=== PATIENT | female | born 1935 | race Asian ===

== ENCOUNTER 2017-12-21 12:34 | Inpatient (IN) | payer MEDICARE, MEDICAID ==
[~2017-12-21] VITALS: Ht 149.9 cm; Wt 54.4 kg
[2017-12-21] MEDS ORDERED: Sodium Chloride 500ML 500 ML IV ONE (12:43)
[2017-12-21 12:44] VITALS: BP 175/68
[2017-12-21] MEDS ORDERED: METFORMIN HCL500 M1 ORAL (12:44)
[2017-12-21] MEDS ORDERED: ATORVASTATIN CA40 MG ORAL (12:44)
[2017-12-21] MEDS ORDERED: ASPIR 8181 MG ORAL (12:44)
[2017-12-21] MEDS ORDERED: TRADJENTA5 MG PO (12:44)
[2017-12-21] MEDS ORDERED: METOCLOPRAMIDE H5 M1 ORAL (12:44)
[2017-12-21] MEDS ORDERED: MELOXICAM15 MG PO (12:44)
[2017-12-21] MEDS ORDERED: GLIMEPIRIDE4 MG ORAL ×2 (12:44)
[2017-12-21] MEDS ORDERED: VITAMIN D400 INTLU ORAL (12:44)
[2017-12-21] MEDS ORDERED: GABAPENTIN100 MG ORAL (12:44)
[2017-12-21] MEDS ORDERED: LEVOCETIRIZINE D5 MG ORAL (12:44)
--- NOTE | 2017-12-21 12:57 | Emergency Room Report ---
History of Present Illness General Chief Complaint: Dizziness Source: Medical Record, EMS Present Illness HPI Patient presents from a elderly daycare facility Patient has had multiple episodes of vomiting She still has increased nausea had several episodes of dry heaving in the emergency room denies any chest pain Denies any fevers denies any dysuria Denies any rash Patient denies any associated pain And with using the manager user interface system reports that her dizziness started just at the moment Patient contributes her nausea to significant dizziness Allergies: Coded Allergies: No Known Allergies (Unverified , 12/21/17) Patient History Past Medical History: see triage record Pertinent Family History: none Reviewed Nursing Documentation: PMH: Agreed; PSxH: Agreed Nursing Documentation-PMH Past Medical History: No History, Except For Hx Hypertension: Yes - Vitamin D deficiency Hx Diabetes: Yes Hx Gastrointestinal Problems: Yes - peptic ulcer, GERD, gastritis History Of Psychiatric Problem: Yes - Major depression Review of Systems All Other Systems: negative except mentioned in HPI Physical Exam Vital Signs Date Time Temp Pulse Resp B/P (MAP) Pulse Ox O2 Delivery O2 Flow Rate FiO2 12/21/17 12:35 96.7 74 20 179/63 99 Room Air 96.6 Sp02 EP Interpretation: reviewed, normal General Appearance: mild distress - Appears uncomfortable Head: normocephalic, atraumatic Eyes: bilateral eye PERRL, bilateral eye EOMI ENT: hearing grossly normal, normal pharynx, TMs + canals normal, uvula midline Neck: full range of motion, supple, no meningismus, no bony tend Respiratory: lungs clear, normal breath sounds, no rhonchi, no respiratory distress, no retraction, no accessory muscle use Cardiovascular #1: normal peripheral pulses, regular rate, rhythm, no edema, no gallop, no JVD, no murmur Gastrointestinal: normal bowel sounds, non tender, soft, no mass, no organomegaly, non-distended, no guarding, no hernia, no pulsatile mass, no rebound Genitourinary: no CVA tenderness Musculoskeletal: normal inspection Neurologic: oriented x3, responsive, reception specialist III-XII nml as tested, motor strength/ tone normal, sensory intact Psychiatric: mood/affect normal Skin: warm/dry, palpation normal, jaundice - Appearance Lymphatic: normal inspection, no adenopathy Medical Decision Making Diagnostic Impression: Primary Impression: Dizziness Additional Impression: Pancreatitis ER Course With the history exam and presentation, multiple differentials considered, including but not limited to appendicitis, gastritis, cholecystitis, diverticulitis Patient has several abnormalities including abnormal CT evidence of stone near the gallbladder Patient did somewhat better with discomfort however given the consideration for cholecystitis Provided antibiotics requiring further inpatient care Labs Test 12/21/17 12:08 12/21/17 12:25 12/22/17 05:45 12/23/17 06:30 Urine Color Pale yellow Urine Appearance Clear Urine pH 7 (4.5-8.0) Urine Specific [place] 1.010 (1.005-1.035) Urine Protein 2+ (NEGATIVE) Urine Glucose (UA) 3+ (NEGATIVE) Urine Ketones 1+ (NEGATIVE) Urine Blood Negative (NEGATIVE) Urine Nitrite Negative (NEGATIVE) Urine Bilirubin Negative (NEGATIVE) Urine Urobilinogen Normal MG/DL (0.0-1.0) Urine Leukocyte Esterase Negative (NEGATIVE) Urine RBC 0 /HPF (0 - 2) Urine WBC 0 /HPF (0 - 2) Urine Squamous Epithelial Cells Occasional /LPF Urine Bacteria None /HPF (NONE) White Blood Count 11.4 K/UL (4.8-10.8) Red Blood Count 4.09 M/UL (4.20-5.40) Hemoglobin 12.5 G/DL (12.0-16.0) Hematocrit 36.6 % (37.0-47.0) Mean Corpuscular Volume 89 FL (80-99) Mean Corpuscular Hemoglobin 30.6 PG (27.0-31.0) Mean Corpuscular Hemoglobin Concent 34.2 G/DL (32.0-36.0) Red Cell Distribution Width 11.8 % (11.6-14.8) Platelet Count 186 K/UL (150-450) Mean Platelet Volume 6.7 FL (6.5-10.1) Neutrophils (%) (Auto) 70.2 % (45.0-75.0) Lymphocytes (%) (Auto) 23.0 % (20.0-45.0) Monocytes (%) (Auto) 5.3 % (1.0-10.0) Eosinophils (%) (Auto) 0.9 % (0.0-3.0) Basophils (%) (Auto) 0.6 % (0.0-2.0) Sodium Level 138 MMOL/L (136-145) 144 MMOL/L (136-145) 146 MMOL/L (136-145) Potassium Level 3.6 MMOL/L (3.5-5.1) 4.8 MMOL/L (3.5-5.1) 4.3 MMOL/L (3.5-5.1) Chloride Level 102 MMOL/L (98-107) 108 MMOL/L (98-107) 108 MMOL/L (98-107) Carbon Dioxide Level 20 MMOL/L (21-32) 27 MMOL/L (21-32) 27 MMOL/L (21-32) Anion Gap 17 mmol/L (5-15) 10 mmol/L (5-15) 11 mmol/L (5-15) Blood Urea Nitrogen 14 mg/dL (7-18) 13 mg/dL (7-18) 10 mg/dL (7-18) Creatinine 0.8 MG/DL (0.55-1.30) 0.8 MG/DL (0.55-1.30) 0.9 MG/DL (0.55-1.30) Estimat Glomerular Filtration Rate mL/min (>60) mL/min (>60) mL/min (>60) Glucose Level 191 MG/DL (74-106) 149 MG/DL (74-106) 153 MG/DL (74-106) Calcium Level 9.6 MG/DL (8.5-10.1) 8.7 MG/DL (8.5-10.1) 8.5 MG/DL (8.5-10.1) Total Bilirubin 0.7 MG/DL (0.2-1.0) Aspartate Amino Transf (AST/SGOT) 22 U/L (15-37) Alanine Aminotransferase (ALT/SGPT) 32 U/L (12-78) Alkaline Phosphatase 119 U/L (46-116) Total Creatine Kinase 102 U/L (26-308) Creatine Kinase MB 0.9 NG/ML (0.0-3.6) Creatine Kinase MB Relative Index 0.8 Troponin I 0.000 ng/mL (0.000-0.056) Total Protein 8.3 G/DL (6.4-8.2) Albumin 4.1 G/DL (3.4-5.0) Globulin 4.2 g/dL Albumin/Globulin Ratio 1.0 (1.0-2.7) Lipase 1334 U/L (73-393) 161 U/L (73-393) Magnesium Level 1.7 MG/DL (1.8-2.4) Triglycerides Level 164 MG/DL (30-150) Cholesterol Level 91 MG/DL (< 200) LDL Cholesterol 32 mg/dL (<100) HDL Cholesterol 36 MG/DL (40-60) Cholesterol/HDL Ratio 2.5 (3.3-4.4) Thyroid Stimulating Hormone (TSH) 0.320 uiU/mL (0.358-3.740) Rhythm Strip Diag. Results EP Interpretation: yes Rate: 66 Rhythm: NSR, no PVC's, no ectopy Chest X-Ray Diagnostic Results Chest X-Ray Diagnostic Results : Chest X-Ray Ordered: Yes # of Views/Limited/Complete: 1 View Indication: Chest Pain EP Interpretation: Yes Interpretation: no consolidation, no effusion, no pneumothorax Impression: No acute disease Electronically Signed by: Michelle Berry DO CT/MRI/US Diagnostic Results CT/MRI/US Diagnostic Results : Impression CT abdomen pelvisIMPRESSION: 1. Distended gallbladder. Slightlythickened gallbladder wall. 2. Large duodenal diverticula. Colonic diverticulosis. No acute diverticulitis. 3. Moderate stool in the colon, maybe constipation. No bowel obstruction. 4. Mild bilateral perinephric stranding maybe senescent, correlate for infection. No obstructive uropathy. CT head no acute disease Last Vital Signs Date Time Temp Pulse Resp B/P (MAP) Pulse Ox O2 Delivery O2 Flow Rate FiO2 12/21/17 12:44 97.5 69 13 175/68 97 Room Air 97.5 Status: improved Disposition: ADMITTED INPATIENT Condition: Serious Michelle Berry DO Dec 21, 2017 12:57
[2017-12-21 13:00] VITALS: BP 150/54
[2017-12-21] MEDS ORDERED: Meclizine 25mg tab ORAL ONE (13:15)
[2017-12-21 13:20] LABS: BASOPHILS % (AUTO) 0.6 % (0.0-2.0); EOSINOPHILS % (AUTO) 0.9 % (0.0-3.0); HEMATOCRIT 36.6 % (37.0-47.0); HEMOGLOBIN 12.5 G/DL (12.0-16.0); MEAN CORPUSCULAR VOLUME 89 FL (80-99); MONOCYTES % (AUTO) 5.3 % (1.0-10.0); NEUTROPHILS % (AUTO) 70.2 % (45.0-75.0); PLATELET COUNT 186 K/UL (150-450); RED BLOOD COUNT 4.09 M/UL (4.20-5.40); RED CELL DISTRIBUTION WIDTH 11.8 % (11.6-14.8); WHITE BLOOD COUNT 11.4 K/UL (4.8-10.8)
[2017-12-21 13:30] LABS: ANION GAP 17 mmol/L (5-15); BLOOD UREA NITROGEN 14 mg/dL (7-18); CALCIUM 9.6 MG/DL (8.5-10.1); CARBON DIOXIDE 20 MMOL/L (21-32); CHLORIDE 102 MMOL/L (98-107); CREATININE 0.8 MG/DL (0.55-1.30); POTASSIUM 3.6 MMOL/L (3.5-5.1); SODIUM 138 MMOL/L (136-145)
--- NOTE | 2017-12-21 13:40 | Diagnostic Imaging Report ---
EXAM: CT Head Without Intravenous Contrast CLINICAL HISTORY: DIZZY TECHNIQUE: Axial computed tomography images of the head/brain without intravenous contrast. CTDI is 70.38 mGy and DLP is 1333 mGy-cm. One or more of the following dose reduction techniques were used: automated exposure control, adjustment of the mA and/or kV according to patient size, use of iterative reconstruction technique. COMPARISON: No relevant prior studies available. FINDINGS: No intracranial hemorrhage, abnormal intra- or extra-axial collections or parenchymal lesions are seen. There are involutional changes with prominence of the sulci, basal cisterns and ventricles. Scattered white matter hypoattenuations are present, likely from small vessel disease. The soliz-white differentiation is preserved. No evidence of mass effect, midline shift, or edema. The osseous structures are unremarkable. The visualized portions of the paranasal sinuses are clear. IMPRESSION: 1. No acute intracranial process. 2. Involutional changes with small vessel disease.
[2017-12-21 13:45] LABS: ALANINE AMINOTRANSFERASE 32 U/L (12-78); ALBUMIN 4.1 G/DL (3.4-5.0); ALKALINE PHOSPHATASE 119 U/L (46-116); ASPARTATE AMINO TRANSFERASE 22 U/L (15-37); BILIRUBIN,TOTAL 0.7 MG/DL (0.2-1.0); CKMB 0.9 NG/ML (0.0-3.6); CREATINE KINASE 102 U/L (26-308)
--- NOTE | 2017-12-21 13:50 | Diagnostic Imaging Report ---
EXAM: CT Abdomen and Pelvis Without Intravenous Contrast CLINICAL HISTORY: PAIN TECHNIQUE: Axial computed tomography images of the abdomen and pelvis without intravenous contrast. CTDI is 9.47 mGy and DLP is 488 mGy-cm. One or more of the following dose reduction techniques were used: automated exposure control, adjustment of the mA and/or kV according to patient size, use of iterative reconstruction technique. COMPARISON: No relevant prior studies available. FINDINGS: Lung bases: Mild bibasilar lung atelectasis. Heart: Cardiomegaly. Coronary artery disease. Mediastinum: Small hiatal hernia. ABDOMEN: Liver: Unremarkable. Gallbladder and bile ducts: Distended gallbladder. Slightly thickened gallbladder wall. No calcified stones. No ductal dilation. Pancreas: Unremarkable. No ductal dilation. Spleen: Unremarkable. No splenomegaly. Adrenals: Unremarkable. No mass. Kidneys and ureters: Mild bilateral perinephric stranding may be senescent, correlate for infection. No obstructive uropathy. Stomach and bowel: Large duodenal diverticula. Colonic diverticulosis. No acute diverticulitis. Moderate stool in the colon, may be constipation. No bowel obstruction. PELVIS: Appendix: Normal appendix. Bladder: Unremarkable. No stones. Reproductive: Uterus and adnexa unremarkable. ABDOMEN and PELVIS: Intraperitoneal space: Unremarkable. No free air. No significant fluid collection. Bones/joints: Degenerative changes of the lumbar spine. No acute fracture. No dislocation. Soft tissues: Unremarkable. Vasculature: Atherosclerotic vascular disease. Nodularities paraesophageal region, query varices. No abdominal aortic aneurysm. Lymph nodes: Small borderline mesenteric lymph nodes. IMPRESSION: 1. Distended gallbladder. Slightly thickened gallbladder wall. 2. Large duodenal diverticula. Colonic diverticulosis. No acute diverticulitis. 3. Moderate stool in the colon, may be constipation. No bowel obstruction. 4. Mild bilateral perinephric stranding may be senescent, correlate for infection. No obstructive uropathy.
--- NOTE | 2017-12-21 13:52 | Diagnostic Imaging Report ---
EXAM: XR Chest, 1 View CLINICAL HISTORY: CP TECHNIQUE: Frontal view of the chest. COMPARISON: No relevant prior studies available. FINDINGS: Lungs: Slightly elevated right hemidiaphragm. Mild bibasilar lung atelectasis. Pleural space: Unremarkable. No pneumothorax. Heart: Unremarkable. No cardiomegaly. Mediastinum: Unremarkable. Bones/joints: Unremarkable. IMPRESSION: Slightly elevated right hemidiaphragm. Mild bibasilar lung atelectasis.
[2017-12-21 14:00] VITALS: BP 137/55
[2017-12-21] MEDS ORDERED: cefTRIAXone 1 GM in NS 55 ML IVPB ONE (14:00)
[2017-12-21 14:09] LABS: APPEARANCE,URINE CLEAR; BILIRUBIN, URINE NEGATIVE (NEGATIVE); COLOR,URINE PALE YELLOW; GLUCOSE, URINE (UA) 3+ (NEGATIVE); KETONES,URINE 1+ (NEGATIVE); LEUKOCYTE ESTERASE ,URINE NEGATIVE (NEGATIVE); NITRITE,URINE NEGATIVE (NEGATIVE); PH,URINE 7 (4.5-8.0); PROTEIN,URINE 2+ (NEGATIVE); UROBILINOGEN,URINE NORMAL MG/DL (0.0-1.0)
[2017-12-21 16:20] VITALS: BP 135/67
[2017-12-21] MEDS ORDERED: Milk of Magnesia 30ml Ud ORAL PRN (16:45)
[2017-12-21] MEDS ORDERED: Zolpidem 5mg tab ORAL PRN (16:50)
--- NOTE | 2017-12-21 18:36 | History & Physical ---
History and Physical History & Physicial HP dictated # [id number] Milan Martins MD Dec 21, 2017 18:36
[2017-12-21 20:00] VITALS: BP 153/63
--- NOTE | 2017-12-21 20:30 | History and Physical Report ---
DATE OF ADMISSION: 12/21/2017 CHIEF COMPLAINT: Nausea, vomiting, and dizziness. HISTORY OF PRESENT ILLNESS: This is a [place] speaking female, who was in her usual state of health. She was at the daycare center today. She started having dizziness and vomiting. She was brought in by paramedics. She was found to have a lipase of 1334 and was admitted. She denies any previous history of gall stones. She denies history of previous problems with the GI tract. PAST MEDICAL HISTORY: Only positive for diabetes and vitamin D deficiency and the reported history of depression. Also, the ER notes that she has history of peptic ulcer disease, GERD, and gastritis. As mentioned, she denies. MEDICATIONS: Reviewed in the EMR. ALLERGIES: No known drug allergies. SOCIAL HISTORY: No history of smoking or alcohol abuse. The patient lives by herself, but she has a son, who lives close by. REVIEW OF SYSTEMS: As above. PHYSICAL EXAMINATION: GENERAL: The patient is an elderly female, in no acute distress. VITAL SIGNS: Blood pressure 179/63, pulse 74, temp 96.7, and respirations 20. HEENT: [place] conjunctivae. Anicteric sclerae. NECK: Supple. LUNGS: Clear to auscultation. HEART: S1, S2 without murmurs or rubs. ABDOMEN: Soft and nontender. EXTREMITIES: No cyanosis or edema. LABORATORY FINDINGS: The CBC shows a WBC of 11,400, hematocrit 36.6, hemoglobin 12.5, and platelets 186,000. The chemistry panel shows serum sodium of 138, potassium 3.6, chloride 102, CO2 20, BUN is 14, creatinine 0.8, and glucose is 191. Lipase is 1334. UA is unremarkable except 3+ protein. ASSESSMENT: This is an 81-year-old female, who is admitted with nausea and vomiting, which has improved. The patient had vomiting, but the problem is that she has significant elevated lipase, pancreatitis is in the differential diagnosis. Also, the patient reportedly has a history of gastroesophageal reflux and gastritis, which could also cause her symptoms. She is diabetic. PLAN: The patient will be on liquid diet, antiemetics, and intravenous fluids. GI consultation will be obtained and further plans will be made based on those results. Milan Martins M.D. DR: KASSY JOB#: [id number] CC: TIM
[2017-12-21] MEDS: Atorvastatin 20mg tab ORAL SCH (20:32)
[2017-12-21] MEDS: NovoLOG Insulin Flexpen SUBQ SCH (20:33)
[2017-12-22] VITALS: BP 114/52
[2017-12-22 04:00] VITALS: BP 131/69
[2017-12-22] MEDS: NovoLOG Insulin Flexpen SUBQ SCH ×4 (06:19→20:41)
[2017-12-22 08:00] VITALS: BP 114/60
[2017-12-22 08:04] LABS: ANION GAP 10 mmol/L (5-15); BLOOD UREA NITROGEN 13 mg/dL (7-18); CALCIUM 8.7 MG/DL (8.5-10.1); CARBON DIOXIDE 27 MMOL/L (21-32); CHLORIDE 108 MMOL/L (98-107); CHOLESTEROL 91 MG/DL (< 200); CREATININE 0.8 MG/DL (0.55-1.30); HDL CHOLESTEROL 36 MG/DL (40-60); POTASSIUM 4.8 MMOL/L (3.5-5.1); SODIUM 144 MMOL/L (136-145); TRIGLYCERIDES 164 MG/DL (30-150)
[2017-12-22] MEDS: Aspirin EC 81mg tab ORAL SCH (08:28)
[2017-12-22] MEDS: Pantoprazole Inj IV SCH (08:28)
[2017-12-22] MEDS ORDERED: 1/2 NS 1000ml IV ONE (08:35)
[2017-12-22 12:00] VITALS: BP 128/58
--- NOTE | 2017-12-22 12:12 | General Progress Note ---
Assessment/Plan Problem List: (1) Pancreatitis ICD Codes: K85.90 - Acute pancreatitis without necrosis or infection, unspecified SNOMED: 88591538, 492954671 (2) Dizziness ICD Codes: R42 - Dizziness and giddiness SNOMED: 865364620, 932576127 (3) Vomiting ICD Codes: R11.10 - Vomiting, unspecified SNOMED: 409290342 (4) DM (diabetes mellitus) ICD Codes: E11.9 - Type 2 diabetes mellitus without complications SNOMED: 88548080 Assessment/Plan GI consult follow lipase advance diet per GI Subjective Allergies: Coded Allergies: No Known Allergies (Unverified , 12/21/17) Subjective feels ok Objective Last 24 Hour Vital Signs Date Time Temp Pulse Resp B/P (MAP) Pulse Ox O2 Delivery O2 Flow Rate FiO2 12/22/17 09:00 Room Air 12/22/17 08:00 97.7 68 18 114/60 (78) 98 97.7 12/22/17 08:00 65 12/22/17 04:00 98.0 71 16 131/69 (89) 98 98.0 12/22/17 04:00 61 12/22/17 00:00 67 12/22/17 00:00 98.1 67 16 114/52 (72) 95 98.1 12/21/17 21:00 Room Air 12/21/17 20:00 98.3 70 18 153/63 (93) 96 98.3 12/21/17 20:00 67 12/21/17 16:26 70 12/21/17 16:20 97.5 71 16 135/67 (89) 97 97.5 12/21/17 15:53 Room Air 12/21/17 14:00 72 22 137/55 96 Room Air 12/21/17 13:00 66 22 150/54 98 Room Air 12/21/17 12:44 97.5 69 13 175/68 97 Room Air 97.5 12/21/17 12:35 96.7 74 20 179/63 99 Room Air 96.6 Intake and Output 12/21/17 12/22/17 19:00 07:00 Intake Total 1015 ml Output Total 240 ml Balance -240 ml 1015 ml Intake Oral 120 ml IV Total 895 ml Output Urine Total 240 ml # Voids 1 2 Laboratory Tests 12/21/17 12:08: Urine Color Pale yellow, Urine Appearance Clear, Urine pH 7, Urine Specific [place] 1.010, Urine Protein 2+H, Urine Glucose (UA) 3+H, Urine Ketones 1+H, Urine Blood Negative, Urine Nitrite Negative, Urine Bilirubin Negative, Urine Urobilinogen Normal, Urine Leukocyte Esterase Negative, Urine RBC 0, Urine WBC 0 , Urine Squamous Epithelial Cells Occasional, Urine Bacteria None 12/21/17 12:25: White Blood Count 11.4H, Red Blood Count 4.09L, Hemoglobin 12.5, Hematocrit 36.6L, Mean Corpuscular Volume 89, Mean Corpuscular Hemoglobin 30.6, Mean Corpuscular Hemoglobin Concent 34.2, Red Cell Distribution Width 11.8, Platelet Count 186, Mean Platelet Volume 6.7, Neutrophils (%) (Auto) 70.2, Lymphocytes (% ) (Auto) 23.0, Monocytes (%) (Auto) 5.3, Eosinophils (%) (Auto) 0.9, Basophils ( %) (Auto) 0.6, Sodium Level 138, Potassium Level 3.6, Chloride Level 102, Carbon Dioxide Level 20L, Anion Gap 17H, Blood Urea Nitrogen 14, Creatinine 0.8 , Estimat Glomerular Filtration Rate , Glucose Level 191H, Calcium Level 9.6, Total Bilirubin 0.7, Aspartate Amino Transf (AST/SGOT) 22, Alanine Aminotransferase (ALT/SGPT) 32, Alkaline Phosphatase 119H, Total Creatine Kinase 102, Creatine Kinase MB 0.9, Creatine Kinase MB Relative Index 0.8, Troponin I 0.000, Total Protein 8.3H, Albumin 4.1, Globulin 4.2, Albumin/ Globulin Ratio 1.0, Lipase 1334H 12/22/17 05:45: Sodium Level 144, Potassium Level 4.8, Chloride Level 108H, Carbon Dioxide Level 27, Anion Gap 10, Blood Urea Nitrogen 13, Creatinine 0.8, Estimat Glomerular Filtration Rate , Glucose Level 149H, Calcium Level 8.7, Magnesium Level 1.7L, Triglycerides Level 164H, Cholesterol Level 91, LDL Cholesterol 32, HDL Cholesterol 36L, Cholesterol/HDL Ratio 2.5L, Thyroid Stimulating Hormone ( TSH) 0.320L Height (Feet): 4 Height (Inches): 11.00 Weight (Pounds): 120 Cardiovascular: normal rate Abdomen: soft Edema: no edema noted Generalized Rahban,Milan MD Dec 22, 2017 12:12
--- NOTE | 2017-12-22 14:37 | General Progress Note ---
Assessment/Plan Assessment/Plan Assessment - pancreatitis, ? passed a stone - Depression - Gastritis / GERD - DM Recommendations - Follow labs - agree with clears - check MRCP Thank you P MD Bibi Subjective Allergies: Coded Allergies: No Known Allergies (Unverified , 12/21/17) Objective Last 24 Hour Vital Signs Date Time Temp Pulse Resp B/P (MAP) Pulse Ox O2 Delivery O2 Flow Rate FiO2 12/22/17 12:00 65 12/22/17 12:00 97.9 69 19 128/58 (81) 95 97.9 12/22/17 09:00 Room Air 12/22/17 08:00 97.7 68 18 114/60 (78) 98 97.7 12/22/17 08:00 65 12/22/17 04:00 98.0 71 16 131/69 (89) 98 98.0 12/22/17 04:00 61 12/22/17 00:00 67 12/22/17 00:00 98.1 67 16 114/52 (72) 95 98.1 12/21/17 21:00 Room Air 12/21/17 20:00 98.3 70 18 153/63 (93) 96 98.3 12/21/17 20:00 67 12/21/17 16:26 70 12/21/17 16:20 97.5 71 16 135/67 (89) 97 97.5 12/21/17 15:53 Room Air Intake and Output 12/21/17 12/22/17 19:00 07:00 Intake Total 1015 ml Output Total 240 ml Balance -240 ml 1015 ml Intake Oral 120 ml IV Total 895 ml Output Urine Total 240 ml # Voids 1 2 Laboratory Tests 12/22/17 05:45: Sodium Level 144, Potassium Level 4.8, Chloride Level 108H, Carbon Dioxide Level 27, Anion Gap 10, Blood Urea Nitrogen 13, Creatinine 0.8, Estimat Glomerular Filtration Rate , Glucose Level 149H, Calcium Level 8.7, Magnesium Level 1.7L, Triglycerides Level 164H, Cholesterol Level 91, LDL Cholesterol 32, HDL Cholesterol 36L, Cholesterol/HDL Ratio 2.5L, Thyroid Stimulating Hormone ( TSH) 0.320L Height (Feet): 4 Height (Inches): 11.00 Weight (Pounds): 120 Rachel Mtz MD Dec 22, 2017 14:37
[2017-12-22 16:00] VITALS: BP 121/59
[2017-12-22 20:00] VITALS: BP 122/59
[2017-12-22] MEDS: Atorvastatin 20mg tab ORAL SCH (20:33)
[2017-12-23] VITALS: BP 122/58
--- NOTE | 2017-12-23 02:30 | Consultation ---
DATE OF CONSULTATION: 12/22/2017 GASTROENTEROLOGY CONSULTATION CONSULTING PHYSICIAN: Rachel Mtz M.D. REFERRING PHYSICIAN: Milan Martins MD CHIEF COMPLAINT: I was asked to see this patient by Dr. Milan Martins for evaluation of pancreatitis. HISTORY OF PRESENT ILLNESS: The patient is an 82-year-old [place] woman, who was admitted to the hospital due to dizziness and vomiting. She was brought in from the daycare center to the hospital by paramedics and was found to have the lipase of 1300 and therefore admitted to the hospital. The patient has not had a history of gallstones and the CT scan of the abdomen and pelvis did not show any gallbladder or pancreatic pathology. The patient feels better today. She is actually nontender on examination. PAST MEDICAL HISTORY: History of diabetes, vitamin D deficiency, depression, peptic ulcer disease, and gastritis. ALLERGIES: None. MEDICATIONS: See the chart list for details. SOCIAL HISTORY: The patient has no history of smoking or drinking. REVIEW OF SYSTEMS: Otherwise negative. PHYSICAL EXAMINATION: GENERAL: Pleasant elderly [place] woman, seen in her room. HEENT: Normocephalic and atraumatic. Sclerae are anicteric. Oropharynx clear. NECK: Supple. CHEST: Clear to auscultation. CARDIOVASCULAR: Revealed a regular rate. ABDOMEN: Soft. Good bowel sounds. There is no organomegaly. There was no significant tenderness. EXTREMITIES: Revealed no edema. NEUROLOGIC: Grossly nonfocal. LABORATORY AND DIAGNOSTIC DATA: Laboratory data and CT imaging were noted. ASSESSMENT: This patient presents with abdominal symptoms to the hospital, which has resolved. She feels and looks well and nontender. She does have lipase of 1300, but this may be a lab phenomenon. She may have passed the stones. She does not have any drinking history. I will repeat the lipase and advance her diet slowly. An MRCP can be done to evaluate the biliary tract for any of the gallstones remain as common bile duct stones. If she recovers uneventfully, then no further workup will be necessary. RECOMMENDATIONS: Per above discussion and per orders written in the chart. Thank you for asking me to participate in the care of this patient. Rachel Mtz M.D. DR: DEBORA JOB#: [id number] CC: TIM
[2017-12-23 04:00] VITALS: BP 125/75
[2017-12-23] MEDS: NovoLOG Insulin Flexpen SUBQ SCH ×4 (05:46→21:05)
[2017-12-23 07:55] LABS: ANION GAP 11 mmol/L (5-15); BLOOD UREA NITROGEN 10 mg/dL (7-18); CALCIUM 8.5 MG/DL (8.5-10.1); CARBON DIOXIDE 27 MMOL/L (21-32); CHLORIDE 108 MMOL/L (98-107); CREATININE 0.9 MG/DL (0.55-1.30); POTASSIUM 4.3 MMOL/L (3.5-5.1); SODIUM 146 MMOL/L (136-145)
[2017-12-23 08:00] VITALS: BP 127/57
[2017-12-23] MEDS: Aspirin EC 81mg tab ORAL SCH (08:17)
[2017-12-23] MEDS: Pantoprazole Inj IV SCH (08:17)
[2017-12-23 12:00] VITALS: BP 133/60
--- NOTE | 2017-12-23 12:08 | General Progress Note ---
Assessment/Plan Problem List: (1) Pancreatitis Assessment & Plan: lipase is down ICD Codes: K85.90 - Acute pancreatitis without necrosis or infection, unspecified SNOMED: 60077659, 016197696 (2) Dizziness ICD Codes: R42 - Dizziness and giddiness SNOMED: 711902171, 199067058 (3) Vomiting ICD Codes: R11.10 - Vomiting, unspecified SNOMED: 573622426 (4) DM (diabetes mellitus) ICD Codes: E11.9 - Type 2 diabetes mellitus without complications SNOMED: 40456711 Assessment/Plan GI F/U MRCP diet as tolerated Subjective Allergies: Coded Allergies: No Known Allergies (Unverified , 12/21/17) Subjective feels ok Objective Last 24 Hour Vital Signs Date Time Temp Pulse Resp B/P (MAP) Pulse Ox O2 Delivery O2 Flow Rate FiO2 12/23/17 09:00 Room Air 12/23/17 08:00 98.0 70 18 127/57 (80) 97 98.0 12/23/17 08:00 70 12/23/17 04:00 55 12/23/17 04:00 98.2 65 17 125/75 (92) 97 98.2 12/23/17 00:00 51 12/23/17 00:00 97.6 57 19 122/58 (79) 96 97.6 12/22/17 21:00 Room Air 12/22/17 20:00 58 12/22/17 20:00 98.0 61 18 122/59 (80) 95 98.0 12/22/17 16:00 98.0 72 20 121/59 (79) 99 98.0 12/22/17 16:00 57 Intake and Output 12/22/17 12/23/17 19:00 07:00 Intake Total 610 ml 1305 ml Output Total 700 ml Balance 610 ml 605 ml Intake Oral 600 ml 480 ml IV Total 10 ml 825 ml Output Urine Total 700 ml # Voids 3 4 Laboratory Tests 12/23/17 06:30: Sodium Level 146H, Potassium Level 4.3, Chloride Level 108H, Carbon Dioxide Level 27, Anion Gap 11, Blood Urea Nitrogen 10, Creatinine 0.9, Estimat Glomerular Filtration Rate , Glucose Level 153H, Calcium Level 8.5, Lipase 161 Height (Feet): 4 Height (Inches): 11.00 Weight (Pounds): 120 Cardiovascular: normal rate Respiratory/Chest: lungs clear Abdomen: soft Milan Martins MD Dec 23, 2017 12:07
[2017-12-23 16:09] VITALS: BP 143/63
[2017-12-23 20:00] VITALS: BP 128/60
[2017-12-23] MEDS: Atorvastatin 20mg tab ORAL SCH (21:02)
--- NOTE | 2017-12-23 22:46 | General Progress Note ---
Assessment/Plan Assessment/Plan Assessment - pancreatitis, ? passed a stone - resolving - Depression - Gastritis / GERD - DM Recommendations - Follow labs - advance po diet - follow exam Subjective Allergies: Coded Allergies: No Known Allergies (Unverified , 12/21/17) Subjective comfortable denies pain lipase now normal Objective Last 24 Hour Vital Signs Date Time Temp Pulse Resp B/P (MAP) Pulse Ox O2 Delivery O2 Flow Rate FiO2 12/23/17 20:00 98.0 69 20 128/60 (82) 96 98.0 12/23/17 19:20 71 12/23/17 16:09 98.2 65 18 143/63 (89) 97 98.2 12/23/17 16:00 62 12/23/17 12:00 98.0 62 18 133/60 (84) 97 98.0 12/23/17 12:00 79 12/23/17 09:00 Room Air 12/23/17 08:00 98.0 70 18 127/57 (80) 97 98.0 12/23/17 08:00 70 12/23/17 04:00 55 12/23/17 04:00 98.2 65 17 125/75 (92) 97 98.2 12/23/17 00:00 51 12/23/17 00:00 97.6 57 19 122/58 (79) 96 97.6 Intake and Output 12/22/17 12/23/17 18:59 06:59 Intake Total 675 ml 1315 ml Output Total 700 ml Balance 675 ml 615 ml Intake Oral 600 ml 480 ml IV Total 75 ml 835 ml Output Urine Total 700 ml # Voids 3 4 Laboratory Tests 12/23/17 06:30: Sodium Level 146H, Potassium Level 4.3, Chloride Level 108H, Carbon Dioxide Level 27, Anion Gap 11, Blood Urea Nitrogen 10, Creatinine 0.9, Estimat Glomerular Filtration Rate , Glucose Level 153H, Calcium Level 8.5, Lipase 161 Height (Feet): 4 Height (Inches): 11.00 Weight (Pounds): 120 Objective WDWN woman NCAT supple CTA RRR abd soft ND NT no edema Rachel Mtz MD Dec 23, 2017 22:46
[2017-12-24] VITALS: BP 137/61
[2017-12-24 04:00] VITALS: BP 158/64
[2017-12-24] MEDS: NovoLOG Insulin Flexpen SUBQ SCH ×3 (06:20→15:54)
[2017-12-24 08:00] VITALS: BP 181/80
[2017-12-24] MEDS: Aspirin EC 81mg tab ORAL SCH (09:02)
[2017-12-24] MEDS: Pantoprazole Inj IV SCH (09:02)
[2017-12-24 12:00] VITALS: BP 144/67
--- NOTE | 2017-12-24 14:28 | General Progress Note ---
Assessment/Plan Problem List: (1) Pancreatitis Assessment & Plan: lipase is down ICD Codes: K85.90 - Acute pancreatitis without necrosis or infection, unspecified SNOMED: 07726732, 340158302 (2) Dizziness ICD Codes: R42 - Dizziness and giddiness SNOMED: 497522150, 388577515 (3) Vomiting ICD Codes: R11.10 - Vomiting, unspecified SNOMED: 224317984 (4) DM (diabetes mellitus) ICD Codes: E11.9 - Type 2 diabetes mellitus without complications SNOMED: 41190004 Assessment/Plan cont as is DC today Subjective Allergies: Coded Allergies: No Known Allergies (Unverified , 12/21/17) Subjective feels ok Objective Last 24 Hour Vital Signs Date Time Temp Pulse Resp B/P (MAP) Pulse Ox O2 Delivery O2 Flow Rate FiO2 12/24/17 12:00 74 12/24/17 12:00 97.8 74 18 144/67 (92) 99 97.8 12/24/17 09:00 Room Air 12/24/17 08:00 98.1 80 18 181/80 (113) 98 98.1 12/24/17 08:00 79 12/24/17 04:00 97.1 65 20 158/64 (95) 98 97.1 12/24/17 03:29 74 12/24/17 00:00 98.0 64 20 137/61 (86) 96 98.0 12/23/17 23:30 64 12/23/17 21:00 Room Air 12/23/17 20:00 98.0 69 20 128/60 (82) 96 98.0 12/23/17 19:20 71 12/23/17 16:09 98.2 65 18 143/63 (89) 97 98.2 12/23/17 16:00 62 Intake and Output 12/23/17 12/24/17 19:00 07:00 Intake Total 1260 ml 896 ml Output Total 1200 ml Balance 1260 ml -304 ml Intake Oral 360 ml IV Total 900 ml 896 ml Output Urine Total 1200 ml # Voids 4 3 Height (Feet): 4 Height (Inches): 11.00 Weight (Pounds): 120 Respiratory/Chest: lungs clear Abdomen: soft Edema: no edema noted Generalized Milan Martins MD Dec 24, 2017 14:28
[2017-12-24 16:00] VITALS: BP 132/66
--- NOTE | 2017-12-24 16:16 | Cardiology Report ---
APPROVED REPORT EKG Measurement Heart [id number] Sinus rhythm with premature atrial complexes Cannot rule out Anterior infarct, age undetermined Abnormal ECG
--- NOTE | 2017-12-24 16:28 | General Progress Note ---
Assessment/Plan Assessment/Plan Assessment - pancreatitis, ? passed a stone - resolved - No pain or tenderness now - Depression - Gastritis / GERD - DM Recommendations - Follow labs - advance po diet - follow exam - d/c planning - outpatient f/u Subjective Allergies: Coded Allergies: No Known Allergies (Unverified , 12/21/17) Subjective comfortable denies pain tolerating PO wants to go home Objective Last 24 Hour Vital Signs Date Time Temp Pulse Resp B/P (MAP) Pulse Ox O2 Delivery O2 Flow Rate FiO2 12/24/17 12:00 74 12/24/17 12:00 97.8 74 18 144/67 (92) 99 97.8 12/24/17 09:00 Room Air 12/24/17 08:00 98.1 80 18 181/80 (113) 98 98.1 12/24/17 08:00 79 12/24/17 04:00 97.1 65 20 158/64 (95) 98 97.1 12/24/17 03:29 74 12/24/17 00:00 98.0 64 20 137/61 (86) 96 98.0 12/23/17 23:30 64 12/23/17 21:00 Room Air 12/23/17 20:00 98.0 69 20 128/60 (82) 96 98.0 12/23/17 19:20 71 Intake and Output 12/23/17 12/24/17 19:00 07:00 Intake Total 1260 ml 896 ml Output Total 1200 ml Balance 1260 ml -304 ml Intake Oral 360 ml IV Total 900 ml 896 ml Output Urine Total 1200 ml # Voids 4 3 Height (Feet): 4 Height (Inches): 11.00 Weight (Pounds): 120 Objective WDWN woman NCAT supple CTA RRR abd soft ND NT no edema Rachel Mtz MD Dec 24, 2017 16:28
[2017-12-24] MEDS ORDERED: 1/2 NS 1000ml IV ONE (18:14)
--- NOTE | 2017-12-26 12:31 | Discharge Summary ---
Discharge Summary Discharge Summary _ DATE OF ADMISSION: 12/21/2017 DATE OF DISCHARGE: 12/24/2017 REASON FOR ADMISSION: 81 years old female with past medical history history of diabetes, GERD, peptic ulcer disease, depression, vitamin D deficiency, [facility] with dizziness, nausea and vomiting. No chest pain or shortness of breath, no rash, no fevers. Laboratory workup revealed mild leukocytosis WBC 11.4, stable hemoglobin and hematocrit. Chemistry showed lipase 1334. Stable LFT. Glucose 191. Anion gap 17. Urinalysis revealed no evidence of UTI, +2 protein +3 glucose. Chest x-ray revealed mild bibasilar atelectasis , slightly elevated right hemidiaphragm. CT of the head revealed no acute intracranial pathology , but showed evidence of small vessel disease. CT of the abdomen and pelvis revealed distended gallbladder with slightly thickened gallbladder wall. Large duodenal diverticula. Colonic diverticulosis. No acute diverticulitis. Moderate stool in the colon possibly constipation. No bowel obstruction. Mild bilateral perinephric stranding, no obstructive uropathy. Patient admitted with diagnoses of nausea, vomiting ,dizziness, elevated lipase, possible pancreatitis, GERD ,gastritis, diabetes. CONSULTANTS: GI specialist Dr. Mtz [facility]: Patient admitted to telemetry floor. No evidence of arrhythmias on telemetry. Patient started on on liquid diet and IV fluids. Symptomatic treatment provided with antiemetics and meclizine as needed. GI specialist seen and evaluated patient . Per GI specialist, pancreatitis was possibly due to passed stone. Repeated lipase 161. Lipid panel revealed mild elevation in triglycerides 164, no other abnormalities. Renal parameters and electrolytes were closely monitored ; electrolytes corrected as needed . Anion gap closed. Blood sugar was managed with sliding scale of insulin Bowel regimen instituted . GI prophylaxis provided. Home medications , including antiplatelet therapy with aspirin and statin , continued . Diet was slowly advanced as tolerated. Patietn was able to tolerate diet , no further nausea and vomiting. Fall precaution maintained. Patient was able to ambulate . Patient clinically stabilized and was ready for discharge home. Outpatient follow-up with GI specialist recommended. FINAL DIAGNOSES: Pancreatitis possibly secondary to passed stone-resolved Gastritis GERD Diabetes mellitus Depression DISCHARGE MEDICATIONS: See Medication Reconciliation list. DISCHARGE INSTRUCTIONS: Patient was discharged home . Follow up with primary care provider in one week. I have been assigned to dictate discharge summary for this account. I was not involved in the patient's management. Nory Campbell NP Dec 26, 2017 12:31
== END 2017-12-24 17:10 | disposition home or self-care (01) | DRG 440 ==
LOC: EDBD 12:34 → EMR 13:10 → 2E 13:44 → EDBEDREQ 14:02
DX: K85.10 Biliary acute pancreatitis without necrosis or infection (principal); E11.9 Type 2 diabetes mellitus without complications; K29.70 Gastritis, unspecified, without bleeding; K21.9 Gastro-esophageal reflux disease without esophagitis; R42 Dizziness and giddiness; F32.9 Major depressive disorder, single episode, unspecified
CPT/HCPCS: 36415; 70450; 71045; 74176; 80048; 80053; 80061; 81003; 82550; 82553; 82962; 83690; 83735; 84443; 84484; 85025; 93005; 96361; 96365; 96367; 96375; 99285; J1815; J2405